=== PATIENT | female | born 1955 | race Caucasian/White ===

== ENCOUNTER 2017-10-06 10:35 | Outpatient (CLI) | payer MEDICARE ==
--- NOTE | 2017-10-06 12:28 | CT ---
CT CHEST WITHOUT CONTRAST: HISTORY: Pulmonary nodules. COMPARISON: 09/01/2016 and 11/14/2015 TECHNIQUE: Multiple contiguous axial images were obtained in a CT of the chest without contrast. Coronal reform ats were performed. FINDINGS: There are stable peripheral nodules on image 29 of 74 in the left upper lobe and two adjacent periphe ral nodules in the right middle lobe, on images 28 and 31. These nodules measure 4 mm or less in siz e. There are two adjacent nodules in the right lower lobe, measuring up to 5 mm in size. These nodu les are well circumscribed. No new pulmonary nodules are seen. No pneumothorax or pleural effusion is present. The heart is normal in size. No hilar or mediastinal lymphadenopathy is appreciated. The visualized subdiaphragmatic structures are unremarkable. Degenerative changes and post surgical changes are seen in the spine. The chest wall soft tissues are unremarkable. IMPRESSION: Multiple stable pulmonary nodules. These have been stable for approximately two years. POS: ROMY
== END 2017-10-06 10:36 | disposition home or self-care (01) ==
LOC: CT 10:35
PROVIDERS: ATTEND Internal Medicine Critical Care Medicine
DX: R91.1 Solitary pulmonary nodule (principal); R91.8 Other nonspecific abnormal finding of lung field
CPT/HCPCS: 71250

== ENCOUNTER 2018-03-31 06:53 | Day surgery (SDC) | payer MEDICARE ==
[2018-03-30 13:16] VITALS: BMI 32.8
[2018-03-31 10:15] VITALS: BP 117/69; TEMP 97.7
--- NOTE | 2018-03-31 10:15 | RAD ---
LUMBAR SPINE THREE VIEWS: INDICATIONS: Lumbar radiculopathy. FINDINGS: There is slight retrolisthesis of L2 on L3. There is post bilateral pedicle screws of a posterior in terconnecting bernardo spanning L2 through L5. This is stable to a CT examination dated 02/03/2018. Ther e is slight retrolisthesis of L1 on L2 that is also stable to the prior exam. No abnormal translatio nal motion is grossly evident. Severe multilevel spondylosis is similar appearing. There is a dorsa l column stimulator entering into the spinal canal at T12-L1. There are vascular calcifications invo lving the abdominal aorta. IMPRESSION: 1. Retrolisthesis of L1 on L2 and of L2 on L3. 2. The posterolateral spinal instrumentation of L2 through L5 is stable. 3. Severe multilevel spondylosis of the lumbar spine. 4. No abnormal translational motion. 5. Dorsal column stimulator. POS: RIKKI
--- NOTE | 2018-03-31 11:24 | CT ---
CT LUMBAR MYELOGRAM: Date: 03/31/18 INDICATION: Lumbar radiculopathy. COMPARISON: Prior CT of lumbar myelogram dated 12/06/14. FINDINGS: There are moderate calcifications involving the abdominal aorta. There are stable bilateral adrenal a denomas, largest being on the left measuring 2.5 cm. There is a dorsal column stimulator entering the posterior epidural space at T12-L1. Conus is seen to terminate at T12. There is retrolisthesis of L2 on L3 and L1 on L2. There is vacuum disc phenomenon within the L1-L2 le jacquelin. This is likely indicative of some underlying disc instability. There is a broad based disc bulge at L1-L2 with loss of disc space height inducing moderate bilateral neural foraminal narrowing that appears relatively stable to the comparison in 2014. At L2-3, no central canal narrowing is evident. There is facet hypertrophy and residual disc osteophy te complex at L2-3 inducing moderate right and severe left neural foraminal narrowing. The left-sided neural foraminal narrowing is stable to the comparison examination. The right-sided neural foraminal narrowing has mildly compressed from the comparison exam. At L3-4, there is no appreciable central canal narrowing. There is moderate bilateral neural foramina l narrowing, which is stable. At L4-5, there is no appreciable central canal or neural foraminal narrowing. At L5-S1, there is facet hypertrophy and a broad based bulge inducing mild left and moderate to sever e right neural foraminal narrowing, which is stable. There is posterolateral spinal instrumentation of L2 through L5. There is solid osseous incorporatio n of the posterolateral bone graft of L2-L5. There is solid interbody bone graft seen at L3-4 and L4- 5. There is a bone graft harvest site involving the left posterior ilium. IMPRESSION: Adjacent segment degeneration at L1-L2 just superior to the L2-L5 posterolateral interbody fusion. Th ere is slight retrolisthesis of L1 on L2 with vacuum disc phenomenon which is seen within the disc sp carmela likely indicative of some disc instability. There is worsening mild broad based bulge at L1-L2 ca using mild central canal narrowing with bilateral neural foraminal narrowing, which appears roughly s table to the comparison CT myelogram dated 12/06/14. POS: RIKKI
--- NOTE | 2018-03-31 11:37 | RAD ---
FLUOROSCOPIC GUIDED LUMBAR MYELOGRAM: INDICATIONS: History of lumbar radiculopathy. TECHNIQUE: Informed consent was obtained. The patient was escorted into the fluoroscopic suite and placed prone on the fluoroscopic table. Manager Track images were performed. The skin overlying the lower back was pre pped and draped in the usual sterile fashion. Buffered 1% Lidocaine was administered to the overlyin g subcutaneous tissues. The 22 gauge spinal needle was guided through the right L4-L5 interlaminar s pace. There was spontaneous return of normal appearing CSF. Subsequently, 10 mL of Isovue-300 was i nstilled into the thecal sac, under real-time fluoroscopy. There was appropriate opacification of th e thecal sac demonstrated, with imaging stored for confirmation. The inner stylet was placed within the spinal needle, and the spinal needle was removed. The patient tolerated the procedure well. The patient was transported to the CT suite to undergo subsequent CT myelogram. Total fluoroscopic time was 0.8 minutes. Total exposure was 1138.7 mGy per m2. IMPRESSION: Technically successful lumbar myelogram. POS: RIKKI
== END 2018-03-31 09:55 | disposition home or self-care (01) ==
LOC: RAD 06:53
PROVIDERS: ATTEND Surgery
PROC: B01B1ZZ Fluoroscopy of Spinal Cord using Low Osmolar Contrast (ICD-10-PCS; principal; 2018-03-31)
DX: M47.26 Other spondylosis with radiculopathy, lumbar region (principal); Z79.82 Long term (current) use of aspirin; Z79.84 Long term (current) use of oral hypoglycemic drugs; Z79.891 Long term (current) use of opiate analgesic; Z79.899 Other long term (current) drug therapy; Z88.6 Allergy status to analgesic agent; Z97.8 Presence of other specified devices; Z98.1 Arthrodesis status; Z98.890 Other specified postprocedural states
CPT/HCPCS: 62304; 72100; 72132

== ENCOUNTER 2018-07-26 07:09 | Outpatient (CLI) | payer MEDICARE ==
[2018-07-26 11:00] LABS: Hemoglobin 12.3 g/dL (12.0-16.0); Mean Corpuscular HGB CONC 34.4 g/dL (32.0-36.0); Mean Corpuscular Hemoglobin 31.9 pg (27.0-31.0); Mean Corpuscular Volume 92.7 fL (78.0-98.0); Platelet Count 188 thou/uL (130-400); Red Blood Cell (RBC) Count 3.86 mill/uL (4.20-5.40); White Blood Cell (WBC) Count 4.6 thou/uL (4.8-10.8)
[2018-07-26 11:13] LABS: PTT 27.1 SEC (22.9-36.1)
[2018-07-26 11:19] LABS: Anion Gap 12 mmol/L (10-20); BUN (Urea Nitrogen) 26 mg/dL (9.8-20.1); Calc. Creatinine Clearance 0 mL/min (70-130); Calcium 9.9 mg/dL (7.8-10.44); Carbon Dioxide 30 mmol/L (23-31); Chloride 102 mmol/L (98-107); Estimated GFR-MDRD 54; Glucose 121 mg/dL (80-115); Potassium 3.9 mmol/L (3.5-5.1); Sodium 140 mmol/L (136-145)
[2018-07-26 11:26] LABS: INR-International Normal Ratio 1.1; Prothrombin Time 13.8 SEC (12.0-14.7)
== END 2018-07-26 07:10 | disposition home or self-care (01) ==
LOC: LABBT 07:09
PROVIDERS: ATTEND Surgery
DX: Z01.818 Encounter for other preprocedural examination (principal); M54.16 Radiculopathy, lumbar region; M48.061 Spinal stenosis, lumbar region without neurogenic claudication
CPT/HCPCS: 80048; 85027; 85610; 85730; 93005; 93010

== ENCOUNTER 2018-08-02 07:09 | Day surgery (SDC) | payer MEDICARE ==
[2018-07-26 10:05] VITALS: BMI 33.3
[2018-08-02] MEDS ORDERED: Fentanyl 250 MCG/5 ML VIAL ONE (08:56)
[2018-08-02] MEDS ORDERED: Sodium Chloride 0.9% 10 ML ONE (09:14)
[2018-08-02] MEDS ORDERED: Thrombin 5000 UNITS/5 ML VIAL ONE (09:14)
[2018-08-02] MEDS ORDERED: Bacitracin Zinc Ointment 30 gm TUBE ONE (11:08)
[2018-08-02] MEDS ORDERED: traMADol HCl 50 MG TAB PO PRN (11:58)
[2018-08-02] MEDS ORDERED: Milk Of Magnesia 30 ML UDCUP PO PRN (11:58)
[2018-08-02] MEDS ORDERED: tiZANidine HCl 4 MG TAB PO PRN (11:58)
[2018-08-02] MEDS ORDERED: Bisacodyl 10 MG SUPP PR PRN (11:58)
[2018-08-02] MEDS ORDERED: Acetaminophen 325 MG TAB PO PRN (11:58)
[2018-08-02] MEDS ORDERED: Mag-Al 1200 mg/1200 mg/30 ML UDCUP PO PRN (11:58)
[2018-08-02] MEDS ORDERED: Acetaminophen/Codeine 30-300mg Tablet PO PRN (11:58)
[2018-08-02] MEDS ORDERED: Promethazine HCl 25 MG/ML VIAL IM PRN (11:58)
[2018-08-02] MEDS ORDERED: Fleet Enema 133 ML BOT PR PRN (11:58)
[2018-08-02] MEDS ORDERED: Morphine 2 MG/ML SYRINGE SLOW IVP PRN (11:58)
[2018-08-02] MEDS ORDERED: Gabapentin 300 MG CAP PO PRN (12:01)
[2018-08-02] MEDS ORDERED: Fentanyl 100 MCG/2 ML VIAL ONE ×2 (12:12→12:39)
[2018-08-02] MEDS ORDERED: Lidocaine 1% PF 5 ML VIAL ONE (12:37)
[2018-08-02] MEDS ORDERED: Glycopyrrolate 0.2 MG/ML 5 ML SYRINGE ONE (12:37)
[2018-08-02] MEDS ORDERED: Ketorolac Tromethamine 30 MG/ML VIAL ONE (12:37)
[2018-08-02] MEDS ORDERED: Rocuronium Bromide 10 MG/ML (10ML VIAL) ONE (12:37)
[2018-08-02] MEDS ORDERED: PROPOFOL 200 MG/20 ML VIAL ONE (12:37)
[2018-08-02] MEDS ORDERED: ePHEDrine 50 MG/ML VIAL ONE (12:37)
[2018-08-02] MEDS ORDERED: Ondansetron PF 4 MG/2 ML Vial ONE (12:37)
--- NOTE | 2018-08-02 12:51 | OP ---
DATE OF PROCEDURE: 08/02/2018 OPERATING ROOM: OR 5. 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 PROCEDURES PERFORMED: L1-L2 laminectomy, partial facetectomy, foraminotomies, L1-L2 nerve roots, with history of prior L2 through L5 laminectomy fusion. DESCRIPTION OF PROCEDURE: After informed consent was obtained from the patient, the patient was brought to the OR. Proper patient, pause, and identification were carried out. She was placed under excellent general endotracheal anesthesia and positioned prone on the OR table. All appropriate points were padded. We identified the prior L2 through L5 incision and this region was sterilely cleansed, prepared and draped. A small incision was drawn in the L1-L2 segment. We then through subperiosteal sharp and monopolar dissection identified the L1-L2 segment. One of the spinal cord stimulator leads was identified and this was gently protected and tucked to the side. We then performed localization, L1-L2 laminectomy, partial facetectomy, foraminotomy with excellent decompression of the common dural tube in the L1-L2 nerve roots bilaterally. There was no spinal fluid leak. Hemostasis was maximized throughout. We then closed the wound upon copious irrigation in anatomic layers following sprinkling of vancomycin powder. The patient was emerged from anesthesia. Job ID: [id number]
[2018-08-02] MEDS ORDERED: HYDROmorphone 2 MG/ML VIAL ONE (13:40)
[2018-08-02] MEDS: HYDROcodone/Acetaminophen 10/325 mg Tablet PO PRN (16:43)
[2018-08-02] MEDS: CEFAZOLIN 2 GM in Premix Bag 1 BAG IVPB SCH (16:44)
[2018-08-02] MEDS ORDERED: Morphine 4 MG/ML VIAL SLOW IVP PRN (16:45)
[2018-08-02] MEDS ORDERED: Gabapentin 300 MG CAP PO SCH (21:00)
[2018-08-02] MEDS ORDERED: Rosuvastatin 20 MG TAB PO SCH (21:00)
[2018-08-02] MEDS ORDERED: Magnesium Oxide 400 MG TAB PO SCH (21:00)
[2018-08-02] MEDS ORDERED: Amitriptyline HCl 25 MG TAB PO SCH (21:00)
[2018-08-02] MEDS ORDERED: Calcium Carbonate 600 MG TAB PO SCH (21:00)
[2018-08-02] MEDS ORDERED: Potassium [Potassium] 99 MG PO SCH (21:00)
[2018-08-02] MEDS ORDERED: metFORMIN 500 MG TAB PO SCH (21:00)
[2018-08-03] MEDS: CEFAZOLIN 2 GM in Premix Bag 1 BAG IVPB SCH (00:13)
[2018-08-03] MEDS: HYDROcodone/Acetaminophen 10/325 mg Tablet PO PRN ×2 (00:19→08:16)
[2018-08-03] MEDS: Sodium Chloride 0.9% 1,000 ML IV SCH ×2 (02:19→02:26)
[2018-08-03 08:18] VITALS: BP 136/73
[2018-08-03 08:24] VITALS: TEMP 97.6
[2018-08-03] MEDS ORDERED: Venlafaxine HCl XR 75 MG CAP PO SCH (09:00)
[2018-08-03] MEDS ORDERED: Lisinopril 20 MG TAB PO SCH (09:00)
[2018-08-03] MEDS ORDERED: Fenofibrate Nanocrystallized 145 MG TAB PO SCH (09:00)
[2018-08-03] MEDS ORDERED: Furosemide 20 MG TAB PO SCH (09:00)
[2018-08-03] MEDS ORDERED: Hydrochlorothiazide 25 MG TAB PO SCH (09:00)
[2018-08-03] MEDS ORDERED: Metamucil PACK PO SCH (09:00)
--- NOTE | 2018-08-03 09:25 | PRG ---
DATE OF SERVICE: 08/03/2018 SUBJECTIVE: Ms. Ochoa is postoperative day #1 from L1-L2 laminectomy. She is doing very well with resolution in her leg pain. She is mobilizing with good strength. We went over intra and postoperative issues. She will be dismissed. Job ID: [id number]
[2018-08-03] MEDS ORDERED: Multivit, Therapeutic 1 TAB PO SCH (21:00)
== END 2018-08-03 10:57 | disposition home or self-care (01) ==
LOC: SDC 07:09 → SURG A 15:00 → SDC 08-03 10:57
PROVIDERS: ATTEND Surgery
PROC: 01NB0ZZ Release Lumbar Nerve, Open Approach (ICD-10-PCS; principal; 2018-08-02)
DX: M48.061 Spinal stenosis, lumbar region without neurogenic claudication (principal); E78.5 Hyperlipidemia, unspecified; I10 Essential (primary) hypertension; K21.9 Gastro-esophageal reflux disease without esophagitis; F32.9 Major depressive disorder, single episode, unspecified; Z98.1 Arthrodesis status; Z88.8 Allergy status to other drugs, medicaments and biological substances; Z96.89 Presence of other specified functional implants; Z79.899 Other long term (current) drug therapy; Z79.82 Long term (current) use of aspirin
CPT/HCPCS: 76000; J1170; J1885; J2001; J2405; J2704; J3010; J3370; J3490

== ENCOUNTER 2019-02-04 22:45 | Emergency (ER) | payer MEDICARE ==
[2019-02-04] MEDS ORDERED: Lisinopril 10 MG TAB ONE (23:21)
[2019-02-04 23:22] LABS: #Basophils 0.1 thou/uL (0.0-0.2); #Eosinphils 0.2 thou/uL (0.0-0.7); #Lymphocytes 1.3 thou/uL (1.20-3.40); #Monocytes 0.5 thou/uL (0.11-0.59); #Neutrophils 4.4 thou/uL (1.40-6.50); %Eosinophils 2.4 % (0.0-10.0); %Lymphocytes 20.4 % (21.0-51.0); %Monocytes 7.7 % (0.0-10.0); %Neutrophils 68.5 % (42.0-75.0); Hemoglobin 13.4 g/dL (12.0-16.0); Mean Corpuscular HGB CONC 34.9 g/dL (32.0-36.0); Mean Corpuscular Hemoglobin 31.1 pg (27.0-31.0); Mean Corpuscular Volume 89.2 fL (78.0-98.0); Mean Platelet Volume 8.2 fL (7.4-10.4); Platelet Count 159 thou/uL (130-400); RBC Distribution Width 12.9 % (11.5-14.5); Red Blood Cell (RBC) Count 4.29 mill/uL (4.20-5.40); White Blood Cell (WBC) Count 6.5 thou/uL (4.8-10.8)
--- NOTE | 2019-02-04 23:26 | RAD ---
EXAM: Single view of the chest HISTORY: Chronic back pain, hypertension, hyperlipidemia COMPARISON: 01/07/2016 FINDINGS: Single view of the chest shows a normal sized cardiomediastinal silhouette. There is no monserrat dence of consolidation, mass, or pleural effusion. A spinal stimulation device is seen with its tips in the thoracic spine. IMPRESSION: No evidence of acute cardiopulmonary disease
[2019-02-04 23:40] LABS: ALT (SGPT) 25 U/L (8-55); AST (SGOT) 20 U/L (5-34); Albumin 4.2 g/dL (3.4-4.8); Alkaline Phosphatase 77 U/L (40-150); Anion Gap 12 mmol/L (10-20); BUN (Urea Nitrogen) 20 mg/dL (9.8-20.1); Bilirubin, Total 0.4 mg/dL (0.2-1.2); Calc. Creatinine Clearance 0 mL/min (70-130); Calcium 9.9 mg/dL (7.8-10.44); Carbon Dioxide 32 mmol/L (23-31); Chloride 101 mmol/L (98-107); Estimated GFR-MDRD 68; Globulin 2.5 g/dL (2.4-3.5); Glucose 154 mg/dL (80-115); Potassium 3.8 mmol/L (3.5-5.1); Protein, Total 6.7 g/dL (6.0-8.3); Sodium 141 mmol/L (136-145)
== END 2019-02-05 00:21 | disposition home or self-care (01) ==
LOC: ERS 22:45
DX: I10 Essential (primary) hypertension (principal); K21.9 Gastro-esophageal reflux disease without esophagitis; E78.5 Hyperlipidemia, unspecified; E78.00 Pure hypercholesterolemia, unspecified; Z79.899 Other long term (current) drug therapy
CPT/HCPCS: 71045; 80053; 83880; 84484; 85025; 93005

== ENCOUNTER 2023-07-04 07:55 | Inpatient (IN) | payer MEDICARE ==
[2023-07-04] MEDS ORDERED: Acetaminophen 500 MG TAB ONE (08:28)
[2023-07-04 08:48] LABS: #Monocytes 0.5 thou/uL (0.11-0.59); #Neutrophils 2.7 thou/uL (1.40-6.50); %Lymphocytes 18.9 % (21.0-51.0); %Monocytes 13.1 % (0.0-10.0); %Neutrophils 67.5 % (42.0-75.0); Hemoglobin 11.4 g/dL (12.0-16.0); Mean Corpuscular HGB CONC 33.5 g/dL (32.0-36.0); Mean Corpuscular Hemoglobin 32.6 pg (27.0-31.0); Mean Corpuscular Volume 97.1 fl (78.0-98.0); RBC Distribution Width 14.4 % (11.5-14.5)
[2023-07-04 08:56] LABS: Platelet Count 97 10x3/uL (130-400)
[2023-07-04 09:05] LABS: INR-International Normal Ratio 1.1; PTT 31.8 sec (22.9-36.1); Prothrombin Time 13.7 sec (12.0-14.7)
[2023-07-04 09:06] LABS: Bacteria/HPF None Seen HPF (None Seen); Bilirubin Negative (Negative); Blood, Urine 1+ (Negative); CAUTI Indications for Culture Dysuria,urgency,freq; Clarity Clear (Clear); Glucose, Urine (Dipstick) Normal (Negative); Ketone, Urine Negative (Negative); Leukocyte Negative Leu/uL (Negative); Nitrite Negative (Negative); Protein, Urine (Dipstick) 10 mg/dL (Neg-Trace); Specific Gravity, Urine 1.011 (1.002-1.036); Squamous Epithelial 0-3 HPF (0-3); Urobilinogen Normal mg/dL (Less than 2); WBC/HPF 0-3 HPF (0-3)
[2023-07-04 09:07] LABS: Urine Culture Reflex No No
[2023-07-04 09:13] LABS: ALT (SGPT) 32 U/L (8-55); AST (SGOT) 38 U/L (5-34); Albumin 3.8 g/dL (3.4-4.8); Alkaline Phosphatase 50 U/L (40-110); Anion Gap 12 mmol/L (10-20); BUN (Urea Nitrogen) 34 mg/dL (9.8-20.1); Bilirubin, Total 0.3 mg/dL (0.2-1.2); Calc. Creatinine Clearance 0 mL/min (70-130); Calcium 8.3 mg/dL (7.8-10.44); Carbon Dioxide 27 mmol/L (23-31); Chloride 100 mmol/L (98-107); Estimated GFR 33; Globulin 2.5 g/dL (2.4-3.5); Glucose 111 mg/dL (80-115); Potassium 3.8 mmol/L (3.5-5.1); Protein, Total 6.3 g/dL (5.8-8.1); Sodium 135 mmol/L (136-145)
[2023-07-04 09:15] LABS: Troponin I 0.016 ng/mL (< 0.028)
[2023-07-04 09:34] LABS: SARS-CoV-2 NAA Rapid Test Not Detected (NotDetected)
[2023-07-04] MEDS ORDERED: cefTRIAXone (ROCEPHIN) 2 GM VIAL ONE (09:39)
[2023-07-04] MEDS ORDERED: Azithromycin 500 MG VIAL ONE (09:40)
[2023-07-04] MEDS ORDERED: Sodium Chloride 0.9% 100 ML ONE (09:40)
[2023-07-04] MEDS ORDERED: Oseltamivir 75 MG CAP ONE (11:19)
[2023-07-04 11:41] LABS: Magnesium 1.8 mg/dL (1.6-2.6)
[2023-07-04] MEDS: Magnesium Sulfate In Water 4 GM in Premix 1 BAG IVPB SCH (13:18)
[2023-07-04] MEDS: Potassium Chloride 20 MEQ TAB PO SCH (13:18)
[2023-07-04 13:28] VITALS: BMI 37.9
[2023-07-04] MEDS ORDERED: Glucagon 1 MG/ML KIT IM PRN (13:52)
[2023-07-04] MEDS ORDERED: Dextrose 5% in Water 1,000 ML IV PRN (13:52)
[2023-07-04] MEDS ORDERED: HumaLOG 300 UNITS/3 ML VIAL SC PRN (13:52)
[2023-07-04] MEDS ORDERED: Acetaminophen 325 MG TAB PO PRN (13:52)
[2023-07-04] MEDS ORDERED: Dextrose 50% Abboject 50 ML SYRINGE SLOW IVP PRN (13:52)
[2023-07-04] MEDS ORDERED: Bisacodyl 5 MG TAB PO PRN (13:52)
[2023-07-04] MEDS ORDERED: Ondansetron PF 4 MG/2 ML Vial IVP PRN (13:52)
[2023-07-04] MEDS: Sodium Chloride 0.9% 1,000 ML IV SCH (14:00)
[2023-07-04 14:51] LABS: Troponin I 0.015 ng/mL (< 0.028)
[2023-07-04 17:10] LABS: Troponin I Less than 0.010 ng/mL (< 0.028)
[2023-07-04] MEDS: HYDROcodone/Acetaminophen 5/325 mg Tablet PO PRN (19:27)
[2023-07-04] MEDS: Oseltamivir 75 MG CAP PO SCH (20:09)
[2023-07-04 20:48] LABS: Troponin I 0.012 ng/mL (< 0.028)
[2023-07-05] MEDS: HYDROcodone/Acetaminophen 5/325 mg Tablet PO PRN (01:53)
[2023-07-05 04:56] LABS: Hematocrit 34.4 % (36.0-47.0); Hemoglobin 11.4 g/dL (12.0-16.0); Manual Diff?? YES; Mean Corpuscular HGB CONC 33.1 g/dL (32.0-36.0); Mean Corpuscular Volume 96.6 fl (78.0-98.0); Mean Platelet Volume 10.7 fL (7.4-10.4); RBC Distribution Width 14.4 % (11.5-14.5); Red Blood Cell (RBC) Count 3.56 mill/uL (4.20-5.40); White Blood Cell (WBC) Count 1.9 10x3/uL (4.8-10.8)
[2023-07-05 04:57] LABS: Delete Auto Diff?? YES; Platelet Count 79 10x3/uL (130-400)
[2023-07-05 05:17] LABS: Anion Gap 12 mmol/L (10-20); BUN (Urea Nitrogen) 20 mg/dL (9.8-20.1); Calc. Creatinine Clearance 107 mL/min (70-130); Calcium 7.6 mg/dL (7.8-10.44); Carbon Dioxide 22 mmol/L (23-31); Chloride 107 mmol/L (98-107); Estimated GFR 75; Glucose 116 mg/dL (80-115); Potassium 3.5 mmol/L (3.5-5.1); Sodium 137 mmol/L (136-145)
[2023-07-05 05:25] LABS: Band 20 % (5-11); CellaVision Operator ID LAB.CLH1; Eosinophils 1 % (0-10); Hypochromia SLIGHT = 6-15 cells HPF (0-5); Large Platelets 5.9 % (0-5); Lymphocytes 24 % (21-51); Monocytes 12 % (0-10); Neutrophil 44 % (42-75); Nucleated RBC (Manual Ct) 1 % (0); Platelet Adequacy Comment Platelets Decreased; Polychromasia SLIGHT = 2-3 cells HPF (0-2); Total Cell Count 101
[2023-07-05] MEDS ORDERED: tiZANidine HCl 4 MG TAB PO PRN (07:45)
[2023-07-05] MEDS: Lisinopril 20 MG TAB PO SCH (08:09)
[2023-07-05] MEDS: Enoxaparin 40 MG (0.4 mL) SYRINGE SC SCH (08:09)
[2023-07-05] MEDS: Furosemide 20 MG TAB PO SCH (08:31)
[2023-07-05] MEDS: Aspirin Chewable 81 MG TAB PO SCH (08:32)
[2023-07-05] MEDS: sulfaSALAzine 500 MG TAB PO SCH (08:32)
[2023-07-05] MEDS: Allopurinol 300 MG TAB PO SCH (08:32)
[2023-07-05] MEDS: Gabapentin 300 MG CAP PO SCH (08:32)
[2023-07-05] MEDS: cefTRIAXone\\ROCEPHIN 1 GM in Sodium Chloride 0.9% 100 ML IVPB SCH (08:32)
[2023-07-05] MEDS: Hydrochlorothiazide 25 MG TAB PO SCH (08:32)
[2023-07-05] MEDS: Azithromycin 500 MG in Sodium Chloride 0.9% 250 ML 250 ML IVPB SCH (12:42)
[2023-07-05 14:48] LABS: Cardiac Risk 3.3 (Less than 4.5)
[2023-07-05] MEDS: metFORMIN XR 500 MG ER.TAB PO SCH (16:21)
[2023-07-05] MEDS: Cholecalciferol 1,000 UNITS (25 MCG) TAB PO SCH (20:08)
[2023-07-05] MEDS: Multivit, Therapeutic 1 TAB PO SCH (20:08)
[2023-07-05] MEDS: Oseltamivir 75 MG CAP PO SCH (20:08)
[2023-07-05] MEDS: Rosuvastatin 20 MG TAB PO SCH (20:09)
[2023-07-05] MEDS: Amitriptyline HCl 25 MG TAB PO SCH (20:09)
[2023-07-05] MEDS: Magnesium Oxide 400 MG TAB PO SCH (20:09)
[2023-07-06] MEDS: glipiZIDE 5 MG TAB PO SCH (08:21)
[2023-07-06 08:51] VITALS: BP 148/72; TEMP 99.2
[2023-07-06 15:38] LABS: #Monocytes 0.3 thou/uL (0.11-0.59); #Neutrophils 1.1 thou/uL (1.40-6.50); %Eosinophils 0.5 % (0.0-10.0); %Lymphocytes 36.1 % (21.0-51.0); %Monocytes 13.9 % (0.0-10.0); Hematocrit 38.3 % (36.0-47.0); Mean Corpuscular HGB CONC 33.9 g/dL (32.0-36.0); Mean Corpuscular Hemoglobin 32.5 pg (27.0-31.0); Mean Corpuscular Volume 95.8 fl (78.0-98.0); Mean Platelet Volume 10.8 fL (7.4-10.4); RBC Distribution Width 13.9 % (11.5-14.5); White Blood Cell (WBC) Count 2.2 10x3/uL (4.8-10.8)
[2023-07-06 15:39] LABS: Platelet Count 105 10x3/uL (130-400)
[2023-07-06 16:04] LABS: Anion Gap 13 mmol/L (10-20); BUN (Urea Nitrogen) 13 mg/dL (9.8-20.1); Calc. Creatinine Clearance 101 mL/min (70-130); Calcium 9.2 mg/dL (7.8-10.44); Carbon Dioxide 27 mmol/L (23-31); Chloride 102 mmol/L (98-107); Estimated GFR 70; Glucose 196 mg/dL (80-115); Potassium 3.3 mmol/L (3.5-5.1); Sodium 139 mmol/L (136-145)
[2023-07-06] MEDS: Potassium Chloride 20 MEQ TAB PO SCH (17:11)
[2023-07-06] MEDS ORDERED: Folic Acid 1 MG TAB PO SCH (21:00)
[2023-07-14] MEDS ORDERED: FLU VACC QS2023(65UP)/MF59C/PF 60 MCG/0.5 ML SYRINGE IM ONE (13:45)
== END 2023-07-06 17:33 | disposition home or self-care (01) | DRG 178 ==
LOC: ERS 07:55 → 2NO 11:30 → T4-A 07-05 21:18
PROVIDERS: ADMIT Internal Medicine; ATTEND Internal Medicine
DX: J10.08 Influenza due to other identified influenza virus with other specified pneumonia (principal); E87.1 Hypo-osmolality and hyponatremia; J15.69 Pneumonia due to other Gram-negative bacteria; I47.20 Ventricular tachycardia, unspecified; N17.9 Acute kidney failure, unspecified; E78.5 Hyperlipidemia, unspecified; K21.9 Gastro-esophageal reflux disease without esophagitis; M54.9 Dorsalgia, unspecified; N18.30 Chronic kidney disease, stage 3 unspecified; E11.22 Type 2 diabetes mellitus with diabetic chronic kidney disease; I12.9 Hypertensive chronic kidney disease with stage 1 through stage 4 chronic kidney disease, or unspecified chronic kidney disease; E78.00 Pure hypercholesterolemia, unspecified; G89.4 Chronic pain syndrome; M10.9 Gout, unspecified; R53.1 Weakness; Z11.52 Encounter for screening for COVID-19; Z79.899 Other long term (current) drug therapy; Z79.82 Long term (current) use of aspirin; Z90.710 Acquired absence of both cervix and uterus; Z98.890 Other specified postprocedural states; Z82.49 Family history of ischemic heart disease and other diseases of the circulatory system; Z88.8 Allergy status to other drugs, medicaments and biological substances; Z91.048 Other nonmedicinal substance allergy status; Z79.84 Long term (current) use of oral hypoglycemic drugs
CPT/HCPCS: 36415; 36416; 51701; 71045; 80048; 80053; 80061; 81001; 83605; 83735; 83880; 84484; 85025; 85610; 85730; 87040; 87077; 87149; 93005; 93306; 94760; 96365; 96368; J0456; J0696; J1650; J3475; J3490; J7050